=== PATIENT | male | born 1965 | race Caucasian/White ===

== ENCOUNTER 2017-01-20 08:28 | Day surgery (SDC) | payer OTHER ==
[2017-01-11 09:23] LABS: HEMATOCRIT 39.4 % (37.9-51.0); HEMOGLOBIN 13.1 g/dL (13.5-17.0); HGB HCT DIFFERENCE -0.1; MEAN CORPUSCULAR HEMOGLOBIN 29.8 pg (27.0-33.4); MEAN CORPUSCULAR HGB CONC 33.2 g/dL (32.0-36.0); MEAN CORPUSCULAR VOLUME 90 fl (80-97); RED BLOOD COUNT 4.38 10^6/uL (4.35-5.55); RED CELL DISTRIBUTION WIDTH 13.4 % (11.5-14.0); WHITE BLOOD COUNT 7.1 10^3/uL (4.0-10.5)
--- NOTE | 2017-01-11 10:27 | EKG REPORT ---
SEVERITY:- ABNORMAL ECG - SINUS RHYTHM FIRST DEGREE AV BLOCK : Confirmed by: Kenzie Ortiz 11-Jan-2017 10:26:49
[2017-01-11 11:38] LABS: ANION GAP 12 (5-19); BLOOD UREA NITROGEN 20 mg/dL (7-20); CALCIUM 9.6 mg/dL (8.4-10.2); CARBON DIOXIDE 25 mmol/L (22-30); CHLORIDE 102 mmol/L (98-107); CREATININE RESULT 1.18 mg/dL (0.52-1.25); GLUCOSE 128 mg/dL (75-110); POTASSIUM 5.2 mmol/L (3.6-5.0); SODIUM 139.4 mmol/L (137-145)
[~2017-01-20 08:28] MED LIST: CEFAZOLIN 1 GM/D5W RTU 1 GM/50 ML RTUPB IV PRN; LACTATED RINGERS 1000 ML IV PRN; LIDOCAINE 0.5% INJ-PF (5 MG/ML) 50 ML SDV SUBCUT PRN
[2017-01-20] MEDS ORDERED: LIDOCAINE 1% INJ-PF (10 MG/ML) 30 ML SDV ONE (08:29)
[2017-01-20] MEDS ORDERED: FENTANYL CITRATE INJ/PF 100 MCG/2 ML AMPUL ONE (10:10)
[2017-01-20] MEDS ORDERED: PROPOFOL INJ 200 MG/20 ML VIAL IV ONE (10:11)
[2017-01-20] MEDS ORDERED: MIDAZOLAM 2 MG/2 ML INJ ONE (10:11)
[2017-01-20] MEDS ORDERED: DEXMEDETOMIDINE INJ 80 MCG/20 ML VIAL IV ONE (10:11)
[2017-01-20] MEDS ORDERED: FENTANYL CITRATE INJ/PF 100 MCG/2 ML AMPUL IV PRN ×3 (10:53)
[2017-01-20] MEDS ORDERED: MEPERIDINE HCL/PF INJ 25 MG/1 ML DISP.SYRIN IV PRN (10:53)
[2017-01-20] MEDS ORDERED: PROMETHAZINE HCL INJ 25 MG/1 ML VIAL IV PRN (10:53)
[2017-01-20] MEDS ORDERED: MORPHINE SULFATE 10 MG/ML INJ IV PRN (10:53)
[2017-01-20] MEDS ORDERED: DIPHENHYDRAMINE HCL 50 MG/ML VIAL IV PRN (10:53)
[2017-01-20] MEDS ORDERED: RINGERS SOLUTION,LACTATED 1,000 ML IV PRN (11:19)
--- NOTE | 2017-01-20 11:23 | Operative Report ---
Operative Report DATE OF SURGERY: 01/20/17 PREOPERATIVE DIAGNOSIS: Right posterior neck mass consistent with sebaceous cyst POSTOPERATIVE DIAGNOSIS: Same OPERATION: Complete excision of right posterior neck sebaceous cyst SURGEON: GIA FARRELL ANESTHESIA: LMAC TISSUE REMOVED OR ALTERED: Sebaceous cyst and contents COMPLICATIONS: None ESTIMATED BLOOD LOSS: 5 cc INTRAOPERATIVE FINDINGS: See below PROCEDURE: The patient was seen in the preop holding area the right neck was marked, then taken to the operating room where LMAC anesthesia was induced. Patient was placed in the left side down right side up position. Right posterior neck was prepped and draped in sterile fashion. Surgical plan surgical timeout were conducted The mobile, posterior neck mass inferior to the occipital region and posterior to the sternocleidomastoid muscle was appreciated. Approximately 4 cm in diameter. Skin was marked for a diagonal incision. The skin was anesthetized with 1% lidocaine. Approximately 4-1/2 cm incision was made over the mass and underlying mass dissected out from the subcutaneous tissue uneventfully. This was consistent with a sebaceous cyst. The specimen was disposed of. The cavity was inspected for any bleeding small sites were cauterized carefully. The wound was closed with 2-0 Vicryl suture, benzoin Steri-Strips. Postop procedure well, taken recovery in stable condition.
--- NOTE | 2017-01-20 11:29 | PDOC DISCHARGE SUMMARY ---
Discharge Summary (SDC) - Discharge Final Diagnosis: Right posterior neck mass sebaceous cyst Date of Surgery: 01/20/17 Discharge Date: 01/20/17 Condition: Good Treatment or Instructions: Keep area clean and dry for 48 hours; may shower keeping the area protected until 4 days postoperative. Patient to resume aspirin in 2 days. He is to take Tylenol 3 as needed pain. He is to follow Dr. Head and/or telemarketing representative [facility] in 1 week. Prescriptions: Acetaminophen with Codeine [Tylenol #3 Tablet] 1 each PO Q4HP PRN #14 tablet PRN Reason: Discharge Diet: As Tolerated Discharge Activity: No Lifting Over 10 Pounds, No Lifting/Push/Pulling Home Care Assistance: None Needed Report the Following to Your Physician Immediately: Shortness of Breath, Increase in Pain, Fever over 101 Degrees
[2017-01-20 13:05] VITALS: BP 120/57
== END 2017-01-20 12:40 | disposition home or self-care (01) ==
LOC: OROUT 08:28
PROVIDERS: ATTEND Surgery
PROC: 0JB50ZZ Excision of Left Neck Subcutaneous Tissue and Fascia, Open Approach (ICD-10-PCS; principal; 2017-01-20 10:30)
DX: L72.3 Sebaceous cyst (principal); M10.9 Gout, unspecified; E29.1 Testicular hypofunction; I48.91 Unspecified atrial fibrillation; I10 Essential (primary) hypertension; M25.50 Pain in unspecified joint; K21.9 Gastro-esophageal reflux disease without esophagitis; G47.30 Sleep apnea, unspecified; Z79.899 Other long term (current) drug therapy; Z79.82 Long term (current) use of aspirin; Z79.51 Long term (current) use of inhaled steroids
CPT/HCPCS: 93005; 36415 ×2; 82962; 84132; 85027; 80048; 93010; 11424; J2250; J0690; J3010; J3490 ×2; J2704; 300